=== PATIENT | male | born 1930 | race Caucasian/White ===

== ENCOUNTER 2016-07-07 05:54 | Day surgery (SDC) | payer OTHER ==
[2016-06-29 12:08] VITALS: BMI 24.3
[2016-07-07] MEDS ORDERED: LIDOCAINE HCL 2% (20ML MULTI-DOSE VIAL) NR ONE ×2 (07:08→07:16)
[2016-07-07] MEDS ORDERED: BUPIVACAINE HCL/PF 0.5% (5MG/ML) 10 ML VIAL ONE (07:16)
[2016-07-07] MEDS ORDERED: GUM MASTIC/STORAX/MSAL/ALCOHOL 1 DRP DROPSBTL MC ONE (07:17)
[2016-07-07] MEDS ORDERED: MIDAZOLAM HCL 2 MG/2 ML SINGLE DOSE VIAL ONE (07:49)
[2016-07-07] MEDS ORDERED: PROPOFOL 20 ML ONE (07:49)
[2016-07-07] MEDS ORDERED: LIDOCAINE HCL/PF 2% SDV 5ML VIAL ONE (07:51)
[2016-07-07 08:57] VITALS: PULSE 64; TEMP 97.3
[2016-07-07 09:45] VITALS: BP 122/66
--- NOTE | 2016-07-08 16:17 | OP ---
DATE OF OPERATION: 07/07/2016 PREOPERATIVE DIAGNOSIS: Right carpal tunnel syndrome. POSTOPERATIVE DIAGNOSIS: Right carpal tunnel syndrome. OPERATIVE PROCEDURE: Right carpal tunnel release. ANESTHESIA: Local with sedation. COMPLICATIONS: None. ESTIMATED BLOOD LOSS: Minimal. INDICATIONS FOR PROCEDURE: The patient is an 85-year-old male with the above finding indicated for operative treatment. Risks, benefits, and alternatives were discussed with the patient at length. Proper informed consent was obtained. DESCRIPTION OF PROCEDURE: After proper identification of the patient and correct operative site, the patient was brought to the operating room and placed supine on the table, prominences well padded. Sedation was given by the anesthesiologist. Local anesthesia was given with 2% lidocaine. Right upper extremity was prepped and draped in the usual sterile fashion. A well-padded tourniquet was placed with sterile prep. Esmarch bandage used to exsanguinate the right upper extremity. Tourniquet was inflated to 250 mmHg. A longitudinal incision was made at the proximal aspect of the palm. Incision was taken sharply through the skin with sharp and blunt dissection in the subcutaneous tissues. Palmar fascia was divided longitudinally. The transverse carpal ligament was divided longitudinally. The distal 4 cm of the antebrachial fascia was divided longitudinally. This was all done with loupe magnification. This provided complete release of the median nerve at the wrist. The wound was irrigated with saline and repaired with a 5-0 nylon suture. Sterile dressings were applied. The patient was reversed from anesthesia and brought to the recovery room in stable condition. He tolerated the procedure well. CORINE MOON M.D. [id number]
== END 2016-07-07 09:37 | disposition home or self-care (01) ==
LOC: FASU 05:54
PROVIDERS: ATTEND Orthopaedic Surgery Hand Surgery
PROC: 01N50ZZ Release Median Nerve, Open Approach (ICD-10-PCS; principal; 2016-07-07 08:20)
DX: G56.01 Carpal tunnel syndrome, right upper limb (principal)

== ENCOUNTER 2016-08-18 08:34 | Day surgery (SDC) | payer OTHER ==
[2016-08-17 09:22] VITALS: BMI 25.0
[2016-08-18] MEDS ORDERED: MIDAZOLAM HCL 2 MG/2 ML SINGLE DOSE VIAL ONE (09:19)
[2016-08-18] MEDS ORDERED: PROPOFOL 20 ML ONE (09:19)
[2016-08-18 09:41] LABS: INR 1.04 (0.82-1.09); PROTHROMBIN TIME (PATIENT) 11.6 SEC (10.2-13.0)
[2016-08-18] MEDS ORDERED: oxyCODONE HCL 5 MG TABLET PO PRN (10:37)
[2016-08-18] MEDS ORDERED: ONDANSETRON 4 MG/2 ML VIAL IVPUSH PRN (10:37)
[2016-08-18] MEDS ORDERED: LACTATED RINGERS SOLUTION 1,000 ML IV SCH (10:45)
[2016-08-18 11:42] VITALS: BP 129/59; PULSE 54; TEMP 98.1
--- NOTE | 2016-08-19 10:59 | OP ---
DATE OF OPERATION: 08/18/2016 PREOPERATIVE DIAGNOSIS: Left carpal tunnel syndrome. POSTOPERATIVE DIAGNOSIS: Left carpal tunnel syndrome. OPERATIVE PROCEDURE: Left carpal tunnel release. ANESTHESIA: Local with sedation. COMPLICATIONS: None. ESTIMATED BLOOD LOSS: Minimal. INDICATIONS FOR PROCEDURE: The patient is an 86-year-old male with the above finding indicated for operative treatment. Risks, benefits, and alternatives were discussed with the patient at length, and proper informed consent was obtained. PROCEDURE: After proper identification of the patient and correct operative site, the patient was brought to the operating room and placed supine on the operating room table. All prominences were well padded. Sedation was given by the anesthesiologist. Local anesthesia was given with 2% lidocaine. Left upper extremity was prepped and draped in the usual sterile fashion. A well-padded tourniquet was placed with a sterile prep. Esmarch bandage used to exsanguinate the left upper extremity. Tourniquet was inflated to 250 mmHg. A longitudinal incision was made over the proximal aspect of the palm. The incision was taken sharply through skin with blunt and sharp dissection of subcutaneous tissues. Palmar fascia was divided longitudinally. Transverse carpal ligament, along with the distal 4 cm of antebrachial fascia was divided longitudinally under direct visualization with loupe magnification. This provided complete release of the median nerve of the wrist. The wound was irrigated with copious amounts of normal saline and repaired with a 5-0 nylon suture. Sterile dressings were applied. The patient was reversed from anesthesia and brought to the recovery room in stable condition. He tolerated the procedure well. Estefanía [id number]
== END 2016-08-18 12:16 | disposition home or self-care (01) ==
LOC: FASU 08:34
PROVIDERS: ATTEND Orthopaedic Surgery Hand Surgery
PROC: 01N50ZZ Release Median Nerve, Open Approach (ICD-10-PCS; principal; 2016-08-18 10:26)
DX: G56.02 Carpal tunnel syndrome, left upper limb (principal)
CPT/HCPCS: 36415; 85610

== ENCOUNTER 2017-06-05 18:01 | Emergency (ER) | payer OTHER ==
[2017-06-05 18:06] VITALS: BP 134/71; PULSE 107; TEMP 97.6; BMI 26.7
--- NOTE | 2017-06-05 20:11 | PDOC ---
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 The patient notes he saw that the blood clotted and then feel asleep. The patient reports he may have scratched the scab while sleeping as he started bleeding again upon waking up. The patient has no other complaints today. The patient denies chest pain, shortness of breath, headache and dizziness. Denies fever, chills, nausea, vomit, diarrhea and constipation. Denies dysuria, frequency, urgency and hematuria. Allergies: NKA Past surgical history: None reported. Social history: No reported alcohol, cigarette, or drug use. PCP: Dr. Craft <Brianna Gardner - Last Filed: 06/05/17 23:59> <Laura Jimenez - Last Filed: 06/06/17 04:11> - General Chief Complaint: Laceration Stated Complaint: BLEEDING FROM NECK Time Seen by Provider: 06/05/17 19:29 Past History <Brianna Gardner - Last Filed: 06/05/17 23:59> - Past Medical History Anemia: No Asthma: No Cancer: Yes (BASAL CA ON NOSE) Cardiac Disorders: Yes (CABG X5 2004, BILATERAL carotid ENDARTERECTOMY) CVA: No (TIA'S) COPD: No CHF: No DVT: No Dementia: No Diabetes: No GI Disorders: No Disorders: No HTN: Yes Hypercholesterolemia: Yes Liver Disease: No Seizures: No Thyroid Disease: No - Surgical History Abdominal Surgery: No Appendectomy: No Cardiac Surgery: Yes (CABGX5,CAROTID ENDARTERECTOMY) Cholecystectomy: Yes Lung Surgery: No Neurologic Surgery: No Orthopedic Surgery: No - Immunization History Immunization Up to Date: Yes - Suicide/Smoking/Psychosocial Hx Smoking History: Never smoked Have you smoked in the past 12 months: No If you are a former smoker, when did you quit?: 1970 Hx Alcohol Use: No Drug/Substance Use Hx: No Substance Use Type: None Hx Substance Use Treatment: No <Laura Jimenez - Last Filed: 06/06/17 04:11> - Past Medical History Allergies/Adverse Reactions: Allergies Allergy/AdvReac Type Severity Reaction Status Date / Time No Known Drug Allergies Allergy Verified 06/05/17 18:05 Home Medications: Ambulatory Orders Aspirin [Aspirin EC] 81 mg PO DAILY 06/29/16 Atorvastatin Ca [Lipitor] 80 mg PO DAILY 06/29/16 Cholecalciferol (Vitamin D3) [Vitamin D3 -] 1,000 unit PO DAILY 06/29/16 Cyanocobalamin [Vitamin B12 -] 1,000 mcg PO DAILY 06/29/16 Furosemide [Lasix] 20 mg PO DAILY 06/29/16 Multivitamins [Multivit ([facility] Formulary)] 1 tab PO DAILY 06/29/16 Quinapril HCl [Accupril -] 20 mg PO DAILY 06/29/16 Warfarin Na [Coumadin] 4 mg PO DAILY 06/29/16 Review of Systems - Review of Systems Able to Perform ROS?: Yes Comments:: 06/05/17 20:47 GENERAL/CONSTITUTIONAL: (+) Bleeding from the right side of the chin. No fever or chills. No weakness. HEAD, EYES, EARS, NOSE AND THROAT: No change in vision. No ear pain or discharge. No sore throat. CARDIOVASCULAR: No chest pain or shortness of breath. RESPIRATORY: No cough, wheezing, or hemoptysis. GASTROINTESTINAL: No nausea, vomiting, diarrhea or constipation. GENITOURINARY: No dysuria, frequency, or change in urination. MUSCULOSKELETAL: No joint or muscle swelling or pain. No neck or back pain. SKIN: No rash NEUROLOGIC: No headache, vertigo, loss of consciousness, or change in strength/ sensation. ENDOCRINE: No increased thirst. No abnormal weight change. HEMATOLOGIC/LYMPHATIC: No anemia, easy bleeding, or history of blood clots. ALLERGIC/IMMUNOLOGIC: No hives or skin allergy. <Brianna Gardner - Last Filed: 06/05/17 23:59> *Physical Exam - Vital Signs Last Vital Signs Temp Pulse Resp BP Pulse Ox 97.6 F 107 H 20 134/71 97 06/05/17 18:02 06/05/17 18:02 06/05/17 18:02 06/05/17 18:02 06/05/17 18:02 - Physical Exam Comments: 06/05/17 20:45 GENERAL: Awake, alert, and fully oriented, in no acute distress HEAD: No signs of trauma EYES: PERRLA, EOMI, sclera anicteric, conjunctiva clear ENT: Auricles normal inspection, hearing grossly normal, nares patent, oropharynx clear without exudates. Moist mucosa NECK: (+) Bleeding from the right side of the chin. Normal ROM, supple, no lymphadenopathy, JVD, or masses LUNGS: Breath sounds equal, clear to auscultation bilaterally. No wheezes, and no crackles HEART: Regular rate and rhythm, normal S1 and S2, no murmurs, rubs or gallops ABDOMEN: Soft, nontender, normoactive bowel sounds. No guarding, no rebound. No masses EXTREMITIES: Normal range of motion, no edema. No clubbing or cyanosis. No cords, erythema, or tenderness NEUROLOGICAL: Cranial nerves II through XII grossly intact. Normal speech, normal gait SKIN: Warm, Dry, normal turgor, no rashes or lesions noted. <Brianna Gardner - Last Filed: 06/05/17 23:59> - Vital Signs Last Vital Signs Temp Pulse Resp BP Pulse Ox 97.6 F 107 H 20 134/71 97 06/05/17 18:02 06/05/17 18:02 06/05/17 18:02 06/05/17 18:02 06/05/17 18:02 <Laura Jimenez - Last Filed: 06/06/17 04:11> Medical Decision Making - Medical Decision Making 06/06/17 04:10 Pt's bleeding was tamponaded with surgicel. His INR is 2.97. He will follow with Dr. Craft. <Laura Jimenez - Last Filed: 06/06/17 04:11> *DC/Admit/Observation/Transfer - Attestations Scribe Attestion: 06/05/17 20:48 Documentation prepared by Brianna Gardner, acting as medical appointment scheduler for Laura Jimenez MD. <Brianna Gardner - Last Filed: 06/05/17 23:59> - Discharge Dispostion Admit: No <Laura Jimenez - Last Filed: 06/06/17 04:11> Diagnosis at time of Disposition: Bleeding, Wound of skin - Discharge Dispostion Disposition: HOME Condition at time of disposition: Stable - Referrals Referrals: Edenilson Craft MD [Primary Care Provider] - - Patient Instructions Printed Discharge Instructions: Warfarin, Skin Wound - Post Discharge Activity
[2017-06-05 20:46] LABS: INR 2.97 (0.82-1.09); PROTHROMBIN TIME (PATIENT) 33.6 SEC (9.98-11.88)
== END 2017-06-05 20:24 | disposition home or self-care (01) ==
LOC: JER 18:01
DX: S00.81XA Abrasion of other part of head, initial encounter (principal); W26.8XXA Contact with other sharp object(s), not elsewhere classified, initial encounter; Y93.E8 Activity, other personal hygiene; Y92.018 Other place in single-family (private) house as the place of occurrence of the external cause; Y99.8 Other external cause status; I10 Essential (primary) hypertension; E78.00 Pure hypercholesterolemia, unspecified; Z85.828 Personal history of other malignant neoplasm of skin; Z86.711 Personal history of pulmonary embolism; Z79.01 Long term (current) use of anticoagulants; Z95.1 Presence of aortocoronary bypass graft
CPT/HCPCS: 36415; 85610; 85730; 99281-25

== ENCOUNTER 2018-09-06 12:57 | Emergency (ER) | payer OTHER ==
[2018-09-06 13:20] VITALS: TEMP 97.9; BMI 25.8
--- NOTE | 2018-09-06 14:04 | PDOC ---
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 Brannon. The patient attempted to be seen in the office 1 day ago but the office was closed.He called his PCP Dr. German who advised him to come to the ED. The patient denies any pain, fever, pus, swellling around the tooth, gums or throat Past History - Past Medical History Allergies/Adverse Reactions: Allergies Allergy/AdvReac Type Severity Reaction Status Date / Time No Known Drug Allergies Allergy Verified 09/06/18 13:20 Home Medications: Ambulatory Orders Aspirin [Aspirin EC] 81 mg PO DAILY 06/29/16 Atorvastatin Ca [Lipitor] 80 mg PO DAILY 06/29/16 Cholecalciferol (Vitamin D3) [Vitamin D3 -] 1,000 unit PO DAILY 06/29/16 Cyanocobalamin [Vitamin B12 -] 1,000 mcg PO DAILY 06/29/16 Furosemide [Lasix] 20 mg PO DAILY 06/29/16 Multivitamins [Multivit ([facility] Formulary)] 1 tab PO DAILY 06/29/16 Quinapril HCl [Accupril -] 20 mg PO DAILY 06/29/16 Warfarin Na [Coumadin] 4 mg PO DAILY 06/29/16 Anemia: No Asthma: No Cancer: Yes (BASAL CA ON NOSE) Cardiac Disorders: Yes (CABG X5 2003, BILATERAL carotid ENDARTERECTOMY) CVA: No (TIA'S) COPD: No CHF: No DVT: No Dementia: No Diabetes: No GI Disorders: No Disorders: No HTN: Yes Hypercholesterolemia: Yes Liver Disease: No Seizures: No Thyroid Disease: No - Surgical History Abdominal Surgery: No Appendectomy: No Cardiac Surgery: Yes (CABGX5,CAROTID ENDARTERECTOMY) Cholecystectomy: Yes Lung Surgery: No Neurologic Surgery: No Orthopedic Surgery: No - Immunization History Immunization Up to Date: Yes - Suicide/Smoking/Psychosocial Hx Smoking History: Never smoked Have you smoked in the past 12 months: No If you are a former smoker, when did you quit?: 1970 Information on smoking cessation initiated: No Hx Alcohol Use: No Drug/Substance Use Hx: No Substance Use Type: None Hx Substance Use Treatment: No Review of Systems - Review of Systems Able to Perform ROS?: Yes Comments:: 09/06/18 14:38 GENERAL/CONSTITUTIONAL: No fever or chills. No weakness. HEAD, EYES, EARS, NOSE AND THROAT: No change in vision. No ear pain or discharge. No sore throat. CARDIOVASCULAR: No chest pain or shortness of breath RESPIRATORY: No cough, wheezing, or hemoptysis. GASTROINTESTINAL: No nausea, vomiting, diarrhea or constipation. GENITOURINARY: No dysuria, frequency, or change in urination. MUSCULOSKELETAL: No joint or muscle swelling or pain. No neck or back pain. SKIN: No rash NEUROLOGIC: No headache, vertigo, loss of consciousness, or change in strength/ sensation. ENDOCRINE: No increased thirst. No abnormal weight change HEMATOLOGIC/LYMPHATIC: No anemia ALLERGIC/IMMUNOLOGIC: No hives or skin allergy. Is the patient limited Urdu proficient: No *Physical Exam - Vital Signs Last Vital Signs Temp Pulse Resp BP Pulse Ox 97.9 F 83 18 112/50 L 98 09/06/18 13:12 09/06/18 13:12 09/06/18 13:12 09/06/18 13:12 09/06/18 13:12 - Physical Exam Comments: 09/06/18 14:39 GENERAL: Awake, alert, and fully oriented, in no acute distress HEAD: No signs of trauma, normocephalic, atraumatic EYES: EOMI, sclera anicteric, conjunctiva clear ENT: oropharynx clear without exudates. Moist mucosa, #16 tooth blood around gum tooth border NECK: Normal ROM, supple LUNGS: No distress, speaks full sentences, clear to auscultation bilaterally HEART: Regular rate and rhythm, normal S1 and S2, no murmurs, rubs or gallops, peripheral pulses normal and equal bilaterally. ABDOMEN: Soft, nontender, normoactive bowel sounds. No guarding, no rebound. No masses EXTREMITIES : Normal inspection, Normal range of motion, no edema. No clubbing or cyanosis. NEUROLOGICAL: Cranial nerves II through XII grossly intact. 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 Brannon. The patient attempted to be seen in the office 1 day ago but the office was closed.He called his PCP Dr. German who advised him to come to the ED. ED Course Less liekly abscess vs infectious most liekly patient with bleeding 2/2 coumadin use will draw cbc, cmp,coags check inr surgicel placed on wound site Will place call to dentist Salud 09/06/18 15:[address] German who recommeds that if INR > 2.6 to hold Coumadin for 1 day INR at 2.96 09/06/18 16:14' cbc w/in normal limits Patient stable for discharge with strict return precautions and follow up Patient expresses understanding. *DC/Admit/Observation/Transfer Diagnosis at time of Disposition: Bleeding, Elevated INR - Discharge Dispostion Disposition: HOME Condition at time of disposition: Stable Decision to Admit order: No - Referrals Referrals: Edenilson Craft MD [Primary Care Provider] - - Patient Instructions Additional Instructions: You were seen in the for complaints of gum bleeding. You were treated with dressing and had control of bleeding. Your INR is elevated, so you should stop taking your Coumadin for 1 day. Resume regular medications on 09/08/18. You are to follow up with your Primary Care Physician within 1-3 days. Return to the ED if you have continued or worsening bleeding, pain at the tooth , swelling, pus or discharge, difficulty breathing. - Post Discharge Activity
[2018-09-06 15:20] LABS: INR 2.96 (0.83-1.09); PROTHROMBIN TIME (PATIENT) 35.3 SEC (9.7-13.0)
[2018-09-06 15:22] LABS: ACTIVATED PTT 52.2 SECONDS (25.2-36.5)
[2018-09-06 15:33] LABS: ALBUMIN 3.6 g/dl (3.4-5.0); ALK PHOS 64 U/L (45-117); ANION GAP 3 MMOL/L (8-16); BILIRUBIN,TOTAL 0.4 mg/dL (0.2-1); BLOOD UREA NITROGEN 16 mg/dL (7-18); CALCIUM 8.7 mg/dL (8.5-10.1); CHLORIDE 104 mmol/L (98-107); CO2 33 mmol/L (21-32); CREATININE 0.7 mg/dL (0.55-1.3); GLUCOSE,RANDOM 111 mg/dL (74-106); POTASSIUM 4.8 mmol/L (3.5-5.1); SGOT/AST 28 U/L (15-37); SGPT/ALT 22 U/L (13-61); SODIUM 139 mmol/L (136-145); TOT PROT 6.3 g/dl (6.4-8.2)
[2018-09-06 15:36] LABS: BASO % 0.9 % (0-2.0); EOS % 1.8 % (0-4.5); HEMATOCRIT 37.1 % (35.4-49); HEMOGLOBIN 12.4 GM/dL (11.7-16.9); LYMPH % 13.2 % (8-40); MCH 32.9 pg (25.7-33.7); MCHC 33.4 g/dl (32.0-35.9); MEAN CELL VOLUME 98.5 fl (80-96); MEAN PLT VOLUME 8.2 fl (7.5-11.1); MONO % 6.4 % (3.8-10.2); NEUT % 77.7 % (42.8-82.8); PLATELET COUNT 157 K/MM3 (134-434); RBC 3.77 M/mm3 (4.00-5.60); RDW 13.9 % (11.9-15.9); WHITE BLOOD COUNT 8.3 K/mm3 (4.0-10.0)
[2018-09-06 16:25] VITALS: BP 131/80; PULSE 81
== END 2018-09-06 16:20 | disposition home or self-care (01) ==
LOC: JER 12:57
DX: K06.8 Other specified disorders of gingiva and edentulous alveolar ridge (principal); R94.8 Abnormal results of function studies of other organs and systems; Z79.01 Long term (current) use of anticoagulants; Z86.711 Personal history of pulmonary embolism; I10 Essential (primary) hypertension; E78.00 Pure hypercholesterolemia, unspecified; Z95.1 Presence of aortocoronary bypass graft; Z85.828 Personal history of other malignant neoplasm of skin
CPT/HCPCS: 36415; 80053; 85025; 85610; 85730; 99282-25

== ENCOUNTER 2018-11-05 10:11 | Emergency (ER) | payer OTHER | END 2018-11-05 11:45 | disposition home or self-care (01) | LOC: JERFT 10:11 ==